=== PATIENT | male | born 1950 | race Caucasian/White ===

== ENCOUNTER 2016-07-02 08:51 | Outpatient (RCR) ==
--- NOTE | 2016-07-02 16:07 | RS.OPPTEV2 ---
Date of Note: 07/02/16 Visit #: 1 Date of Evaluation: 07/02/16 Payer Source: Insurance Date of Onset/Injury/Change in Status: 05/16/16 Treatment Diagnosis: Dizziness History of Condition/Mechanism of Injury:: Patient reports sudden onset of significant dizziness approximately a month ago while bent over to trim a horse' s thompson. States he was put on Antivert and Valium. Then a few weeks later on , he woke up ~3 am to go to the bathroom and he could not get out of bed and then once his helped him up he staggered into the bathroom. States at 5am that morning he was able to get out of bed, staggered to the bathroom and fell into the bathtub and hit his head. Functional Limitations: Bending, Ambulation Current Subjective/complaints:: Patient reports he has not had any other severe symptoms of dizziness since . States he still has dizziness with full neck extension or with turning his head quickly. States he occasionally stumbles, but not frequently. Also states that when he walks, he sometimes feels like his momentum is pulling him forward and his feet cannot keep up with his body. Reports he used to have problems with headaches, but for the last 6 months his has not had headaches. States he has had tinnitus for 30 years. Medical History Medical History: Hypertension Surgical History Comments:: CABG 2011, Smoking Status: Former smoker Diagnostic Testing/Imaging:: Carotid artery study showed no significant arterial stenosis. Head CT Hx Home Medications: Atorvastin, Amlodipine,Losartin, ASA, Allopurinol, diazepam , Meclizine Patient's Goals: His goal is to get relief from dizziness episodes. Functional Outcome Measure Tinetti: 28 Other: Dizziness FOM :34% impairment - G Codes & Severity Modifier G Codes & Modifier: Mobility current CJ. Mobility goal CH Source of G Code score: Dizziness FOM Observation - Observation Inspection: Patient exhibits no nystagmus at rest. Posture: Forward Head Gait - Gait Pattern General Gait Pattern Observation: No Deviations/Normal Gait Comments: Ambulates independently without an assistive device. No loss of balance or deviation from straight path with ambulation in the department. General Range of Motion: Cervical AROM is WFL's. Demonstrates slightly less motion with left rotation. Reports no onset of dizziness with rotation or flexion. Full cervical extension does cause dizziness that last for a few seconds after returning to a neutral posture. Full AROM of bilateral UE's. Muscle Strength: 5/5 throughout bilateral UE's. Special Tests: VA test -negative bilaterally Additional Comments: Additional Comments: Estela-Hallpike test elicits no nystagmus or dizziness to either side. Interventions - Exercise/Activities/Manual Therapy Exercises/Activities: NA Manual Therapy: NA - Charges Total Direct Minutes: 35 mins Total Treatment Time: 35 mins Procedures billed for this date of service:: EVAL [facility] Assessment Assessment: Patient presents to therapy with a diagnosis of dizziness. Patient only reported dizziness during the evaluation today with end range cervical extension, which resolved soon after returning to neutral. Special tests did not elicit symptoms dizziness or nystagmus. Patient at times sounds to have experienced BPPV in the past, but today I am unable to verify that it is BPPV. Recommend that he see a ENT physician for further assessment. I contacted Dr. Orosco's office regarding this. Will hold chart if he is assessed and sent back for therapy. Airport Attendant Goals Goal #1: Patient independent with Michelle Maneuver. Goal to be met by: 07/16/16 Plan - Treatment to be Provided Procedures: Therapeutic Activity, Canalith Repositioning, Vestibular Rehab, Patient Education Modalities: No Modalities - Treatment Plan Frequency: 1-2 x week Duration: 4 weeks ORDER # VISITS AND/OR THROUGH DATE: 07/16/16 - Treatment Code (1) Postural dizziness Comments: R42
== END 2016-07-16 ==
PROVIDERS: ATTEND Emergency Medicine
DX: R42 Dizziness and giddiness (principal)

== ENCOUNTER → 2016-07-31 | Outpatient (POV) | LOC: OUTPT 00:01 | PROVIDERS: ATTEND Otolaryngology | DX: R42 Dizziness and giddiness (principal) | CPT/HCPCS: 92557; 92567 ==

== ENCOUNTER 2017-05-13 10:00 | Outpatient (RCR) ==
--- NOTE | 2017-04-29 14:14 | RS.OPPTEV2 ---
Date of Note: 04/25/17 Visit #: 1 Date of Evaluation: 04/25/17 Payer Source: Insurance Date of Onset/Injury/Change in Status: 05/16/16 Treatment Diagnosis: Dizziness History of Condition/Mechanism of Injury:: Patient reports sudden onset of significant dizziness the end of 2015 while he bent over to trim a horse's thompson. States he was put on Antivert and Valium. Then a few weeks later on , he woke up ~3 am to go to the bathroom and he could not get out of bed and then once his helped him up he staggered into the bathroom. States at 5am that morning he was able to get out of bed, staggered to the bathroom and fell into the bathtub and hit his head. He has continued to have episodes of dizziness. Has been to ENT. Prior Level of Function.....Patient was independent with: ADL's, Self Care, Work /Vocation, Caregiving, Ambulation/Mobility, Community Integration/Access Functional Limitations: Bending, Ambulation Current Subjective/complaints:: Reports having times of dizziness with turning his head to the left. States he looked up some information about performing the Michelle maneuver and tried it himself at home. States it made him very dizzy , to the point he thought he would throw up. States he has not had headaches lately. He is hoping treatment will help decrease his dizziness. Reports that quick movements of his head and bending over causes increased dizziness. Reports no recent falls. States he has Meclizine to take 3 times a day. He did not take it today, per our request for the evaluation. Medical History Medical History: Hypertension Surgical History Comments:: CABG 2011, Smoking Status: Former smoker Hx Home Medications: Atorvastin, Amlodipine,Losartin, ASA, Allopurinol, diazepam , Meclizine Patient's Goals: His goal is to get relief of dizziness. Functional Outcome Measure Other: The Dizziness Handicap Inventory : score of 34 - G Codes & Severity Modifier G Codes & Modifier: NA Source of G Code score: NA Observation - Observation Posture: Forward Head, Rounded Shoulders Gait - Gait Pattern Gait Comments: Ambulates independently without an assistive device and no loss of balance or obvious balance impairment. General Range of Motion: Cervical AROM is WFL's in all directions with currently no reports of dizziness. Additional Comments: Additional Comments: Modified VA Test: negative bialterally. Sharp-Yamilex: negative. Spontaneous Nystagmus: absent. Patient demonstrates smooth pursuit with vertical and horizontal eye movements. Eye convergence WNL's. BPPV Special Tests: Head Thrust: negative, Head-Shaking Nystagmus: left beating nystagmus. Estela-Hallpike: positive to the left. Negative to the right. Roll test: Negative. Interventions - Exercise/Activities/Manual Therapy Exercises/Activities: Explained and performed Left Michelle maneuver. Patient given handout with instructions and advised to avoid bending over. Instructed to perform exercises 2-3 times a day. Manual Therapy: NA HOME EXERCISE PROGRAM: Left Michelle maneuver - Other Services Other Treatments/Services: Canalith Repositioning - Charges Total Direct Minutes: 40 mins Total Treatment Time: 40 mins Procedures billed for this date of service:: EVAL Assessment Assessment: Patient presents to the department with diagnosis of dizziness. Physician orders for Michelle maneuver. Patient demonstrates minimal impairment from dizziness. Demonstrates likely left sided BPPV. He will benefit from Michelle maneuver and continued visits to monitor progress and modify program/ exercises as needed. Patient Education: Education of diagnosis, Activity Modification Rehab Potential: Good Short Term Goals Goal #1: Pt independent and compliant with Michelle maneuver. Goal to be met by: 05/06/17 Custodial Goals Goal #1: Pt independent with HEP. Goal to be met by: 05/29/17 Goal #2: Pt to report no episodes of dizziness. Goal to be met by: 05/29/17 Goal #3: Dizziness Handicap Inventory score <20. Goal to be met by: 05/29/17 Plan - Treatment to be Provided Procedures: Therapeutic Activity, Canalith Repositioning, Vestibular Rehab, Patient Education Modalities: No Modalities - Treatment Plan Frequency: 1-2 x week Duration: 4 weeks ORDER # VISITS AND/OR THROUGH DATE: 05/29/17 - Treatment Code (1) Benign paroxysmal vertigo of left ear Code(s): H81.12 - BENIGN PAROXYSMAL VERTIGO, LEFT EAR Comments: H81.12 (2) Postural dizziness Code(s): R42 - DIZZINESS AND GIDDINESS Comments: R42
--- NOTE | 2017-04-29 14:46 | RS.OPPTDN ---
Subjective Date of Note: 04/29/17 Visit #: 2 Date of Evaluation: 04/25/17 Payer Source: Insurance Treatment Diagnosis: Dizziness Current Subjective/complaints:: States he has been performing the Michelle maneuver to his left 3 times a day. States he maybe a little better. States a few times he performed the Michelle maneuver, it made him a little dizziness. He has not taken Meclizine since the day before the evaluation last week. States he has not noticed feeling worse or better without the medication. Prior to evalution, his was taking meclizine once a day. Interventions - Exercise/Activities/Manual Therapy Exercises/Activities: Discussed and reviewed Michelle maneuver. Patient states he is counting to 30 at home and feels confident that he is performing it with plenty of cervical extension. Manual Therapy: NA HOME EXERCISE PROGRAM: Left Michelle maneuver - Objective Findings Observations,measurements,etc.: Re-assessed patient: [place]-Hallpike:negative bilaterally. Roll Test: negative. Motion sensitivity testing: sit to supine elicits dizziness. Patient given habituation exercises for long sit to supine and left head turns. - Charges Total Direct Minutes: 21 mins Total Treatment Time: 21 mins Procedures billed for this date of service:: EX Assessment: Patient is unsure at this time if the left Michelle maneuver is making a difference. He is very receptive to also adding the Habituation exercises. Demonstrates potential to gain relief of dizziness with treatment. Patient demonstrates compliance with HEP?: Yes Short Term Goals Goal #1: Pt independent and compliant with Michelle maneuver. Goal to be met by: 05/06/17 Progress towards Goal:: Met Feather Renovator Goals Goal #1: Pt independent with HEP. Goal to be met by: 05/29/17 Goal #2: Pt to report no episodes of dizziness. Goal to be met by: 05/29/17 Goal #3: Dizziness Handicap Inventory score <20. Goal to be met by: 05/29/17 Plan PLAN OF CARE EXPIRES ON:: 05/29/17 ORDER # VISITS AND/OR THROUGH DATE: 05/29/17 PLAN: Will reassess in a week to see if he is making progress or if activities need to be modified.
--- NOTE | 2017-05-06 13:07 | RS.OPPTDN ---
Subjective Date of Note: 05/06/17 Visit #: 3 Date of Evaluation: 04/25/17 Payer Source: Insurance Treatment Diagnosis: Dizziness Current Subjective/complaints:: Patient states he has been performing the Michelle maneuver and habituation exercises as instructed. States the initial position of lying supine with neck extended and turned to the left brings on dizziness after about 15 seconds of hold time. States this has been happening consistently. States he holds the position until it passes. Reports headaches above his eyes and base of his head. - Heat/Cryotherapy Treatment: Hot Pack (X 10 mins prior to traction) - Traction Treatment Method: Mechanical, Intermittent, Cervical Patient Position: Supine Amount of Force Applied: 23-24 lbs. Hold Time: 30 sec Rest Time: 5 sec Duration of treatment: 12 mins Interventions - Exercise/Activities/Manual Therapy Exercises/Activities: Discussed and reviewed Michelle maneuver. Advised to continue with this and added cervical rotation and lateral flexion stretching to gain increased mobility. Total minutes of Exercise: 14 mins Manual Therapy: NA HOME EXERCISE PROGRAM: Left Michelle maneuver - Objective Findings Observations,measurements,etc.: Cervical rotation to the left is approximately 75% of normal and right rotation is 90 to 100% of normal range. Lateral flexion bilaterally is 50% of normal range. VA test and modified VA test negative bilaterally. - Charges Total Direct Minutes: 26 Total Treatment Time: 36 Procedures billed for this date of service:: HP, EX, mechanical traction Assessment: Patient is compliant and independent with Michelle maneuver. He continues to have onset of dizziness consistently with initial position of Michelle , when he is supine with neck extended and in left rotation. He demonstrates limited mobility of the cervical spine to the left and may benefit from treatment to the neck of stretching, traction, and strengthening to reduce symptoms that may be cervicogenic. Patient Education: Education of diagnosis, Home Exercise Program, Education of Plan of Care Patient demonstrates compliance with HEP?: Yes Short Term Goals Goal #1: Pt independent and compliant with Michelle maneuver. Goal to be met by: 05/06/17 Progress towards Goal:: Met [facility] Goals Goal #1: Pt independent with HEP. Goal to be met by: 05/29/17 Goal #2: Pt to report no episodes of dizziness. Goal to be met by: 05/29/17 Goal #3: Dizziness Handicap Inventory score <20. Goal to be met by: 05/29/17 Plan PLAN OF CARE EXPIRES ON:: 05/29/17 ORDER # VISITS AND/OR THROUGH DATE: 05/29/17 PLAN: Continue with cervical mechanical traction and exercises, along with Michelle maneuver, to address symptoms.
--- NOTE | 2017-05-09 11:22 | RS.OPPTDN ---
Subjective Date of Note: 05/09/17 Visit #: 4 Date of Evaluation: 04/25/17 Payer Source: Insurance Treatment Diagnosis: Dizziness Current Subjective/complaints:: Patient reports he has been performing his neck stretches. States he had a small amount of dizziness with left lateral flexion stretching. Reports no problems following traction treatment at last session. - Heat/Cryotherapy Treatment: Hot Pack (X 15 mins to cervical spine prior to traction) - Traction Treatment Method: Mechanical, Intermittent, Cervical Patient Position: Supine Amount of Force Applied: 26-27 lbs. Hold Time: 30 sec Rest Time: 5 sec Duration of treatment: 16 mins Interventions - Exercise/Activities/Manual Therapy Exercises/Activities: Reports a few episodes of dizziness with Michelle maneuver, but seems to less intense. Patient assisted with stretching into lateral flexion. Total minutes of Exercise: X 9 mins Manual Therapy: NA HOME EXERCISE PROGRAM: Left Michelle maneuver, cervical rotation and lateral flexion stretching. - Objective Findings Observations,measurements,etc.: Cervical rotation to the left is better, however continues to be less than to the right. - Charges Total Direct Minutes: 9 mins Total Treatment Time: 40 mins Procedures billed for this date of service:: HP, traction, EX Assessment: Patient tolerates traction well. Is obviously performing cervical stretching as instructed as rotation to the left has improved. Demonstrates continued hypomobility of the cervical spine and will benefit from continued traction and stretching to improve neck motion and possibly decrease dizziness that may be cervicogenic. Patient Education: Education of diagnosis, Body/Joint mechanics, Home Exercise Program, Activity Modification, Education of Plan of Care Patient demonstrates compliance with HEP?: Yes Short Term Goals Goal #1: Pt independent and compliant with Michelle maneuver. Goal to be met by: 05/06/17 Progress towards Goal:: Met Goal #2: Cervical rotation and lateral flexion WNL's. Goal to be met by: 05/19/17 Land Surveying Manager Goals Goal #1: Pt independent with HEP. Goal to be met by: 05/29/17 Goal #2: Pt to report no episodes of dizziness. Goal to be met by: 05/29/17 Goal #3: Dizziness Handicap Inventory score <20. Goal to be met by: 05/29/17 Plan PLAN OF CARE EXPIRES ON:: 05/29/17 ORDER # VISITS AND/OR THROUGH DATE: 05/29/17 PLAN: Continue to progress traction and neck stretching and habituation exercises as indicated to further reduce symptoms of dizziness.
--- NOTE | 2017-05-13 11:18 | RS.OPPTDN ---
Subjective Date of Note: 05/13/17 Visit #: 5 Date of Evaluation: 04/25/17 Payer Source: Insurance Treatment Diagnosis: Dizziness Current Subjective/complaints:: Patient states he had a bad dizzy episode over the weekend while hanging [place] lights. States he just climbed up a ladder and reached his arm out, and got really dizzy and nauseous. States he had not been looking up or down when it came on. States it was one of the worst spells he had had. Also states he continues to perform the Michelle maneuver, with continued dizziness if he keeps his eyes open. - Heat/Cryotherapy Treatment: Hot Pack (x 15 mins prior to cervical traction) - Traction Treatment Method: Mechanical, Intermittent, Cervical Patient Position: Supine Amount of Force Applied: 29-30 lbs. Hold Time: 30 sec Rest Time: 5 sec Duration of treatment: 20 mins Traction Treatment Comment: no complaints Interventions - Exercise/Activities/Manual Therapy Exercises/Activities: Assisted with stretching into lateral flexion. Instructed in cervical retraction to stretch tight muscles at the base of the skull. Instructed to discontinue performing the Michelle maneuver as no significant improvement in symptoms have occurred since initial evaluation. Total minutes of Exercise: X 9 mins Manual Therapy: NA HOME EXERCISE PROGRAM: (Left Michelle maneuver-discontinued 05/13/17), cervical rotation, lateral flexion stretching, cervical retraction. - Objective Findings Observations,measurements,etc.: Cervical rotation is nearly equal, comparing left to right. Lateral flexion is more limited to the left. - Charges Total Direct Minutes: 9 mins Total Treatment Time: 44 mins Procedures billed for this date of service:: HP, Traction Assessment: Patient with continued sporadic episodes of dizziness. Michelle maneuver does not appear to be reducing or changing his symptoms. Cervical rotation to his left has improved. Discussed the increase in pull on the traction today and trying one more visit with cervical traction at a therapeutic range to determine if treatment to the neck may reduce his symptoms. Patient Education: Education of diagnosis, Home Exercise Program, Education of Plan of Care Patient demonstrates compliance with HEP?: Yes Short Term Goals Goal #1: Pt independent and compliant with Michelle maneuver. Goal to be met by: 05/06/17 Progress towards Goal:: Met Goal #2: Cervical rotation and lateral flexion WNL's. Goal to be met by: 05/19/17 Progress towards Goal:: Progressing Riding Instructor Goals Goal #1: Pt independent with HEP. Goal to be met by: 05/29/17 Progress towards goal: Progressing Goal #2: Pt to report no episodes of dizziness. Goal to be met by: 05/29/17 Goal #3: Dizziness Handicap Inventory score <20. Goal to be met by: 05/29/17 Plan PLAN OF CARE EXPIRES ON:: 05/29/17 ORDER # VISITS AND/OR THROUGH DATE: 05/29/17 PLAN: Will see for one more therapy session, to determine his response to the increased cervical traction poundage today and have another opportunity to provide traction to see if symptoms are at all cervicogenic.
== END 2017-05-15 ==
PROVIDERS: ATTEND Internal Medicine
DX: R42 Dizziness and giddiness (principal)

== ENCOUNTER 2017-12-29 08:50 | Outpatient (CLI) ==
--- NOTE | 2017-12-29 12:20 | MRI ---
EXAM: MRI brain without and with IV contrast. DATE: 12/29/2017. HISTORY: Dizziness x 6 years, with recent worsening of symptoms. TECHNIQUE: Sagittal T1W postcontrast, axial T2W, axial FLAIR, axial T1W pre and postcontrast, axial DWI, coronal T1W postcontrast, and coronal T2W GRE sequences of the brain were obtained using 1.2 Adina la magnet. CONTRAST: Omniscan - 20 ml IV. COMPARISON: CT head 16 May 2016. FINDINGS: The ventricles, cisterns, and sulci are commensurately enlarged due to involutional change . No midline shift, mass effect or abnormal extra-axial fluid collection is apparent. No acute infa rct, hemorrhage or enhancing neoplasm is identified. No abnormal contrast enhancement is identified in the brain, meninges or dura. Moderate/large confluent rim of T2W/FLAIR hyperintensity is observed in the white matter abutting each lateral ventricle. Multiple other 210 mm, T2W/FLAIR bright, non-e nhancing foci are scattered within the nash radiata, centrum semiovale, and subcortical white matte r bilaterally. A 2 mm FLAIR hyperintense, non-enhancing focus is seen in the left cerebral peduncle. Prominent Virchow-Chao spaces are demonstrated within each basal ganglia. The quinteros - white matter differentiation is normal. Small areas of T2W GRE black signal within each basal ganglia appear melvi ign. T2W GRE black signal within the region of the pineal gland correlates with benign calcification on CT scan. No migration or diverticulation abnormality is identified. The amygdala, hippocampus, and parahippocampal gyri are similar bilaterally. The 7th/8th cranial nerve complexes, cerebellopont ine angles, brainstem, and visible cervical spinal cord are normal. There is no cerebellar tonsillar ectopia. The pituitary gland is normal in size and signal. Corpus callosum is normal in size and c onfiguration. Left vertebral artery is dominant. T2W/T1W bright signal within the right vertebral a rtery could indicate slow flowing blood. Contrast enhancement within this vessel reduces the likelih ood of a true vessel occlusion. Flow voids are present in the remaining major intracranial arteries and in the dural venous sinuses. No aneurysm, AVM or dural venous sinus thrombosis is apparent. No orbit abnormality is identified. The mastoid air cells are unremarkable. There is mild mucosal thic kening within multiple ethmoid air cells and both maxillary sinuses. Retention cyst with inspissated mucus is suspected at the anterior inferior right maxillary sinus.. No neck mass or lymphadenopathy is detected. No calvarial neoplasm or acute fracture is evident. IMPRESSIONS: 1. No acute infarct, hemorrhage, enhancing neoplasm or hydrocephalus. 2. Moderate/marked cerebral and minor brainstem small vessel disease. 3. Minor, benign basal ganglia mineral deposition. 4. Mild cerebral and minor cerebellar atrophy. 5. Right vertebral artery signal abnormality - DDX: Flow artifact or slow flowing blood is likely. Vessel occlusion is unlikely since there is contrast enhancement within the vertebral artery. Consider MRA or CTA for fur ther evaluation.
== END 2017-12-29 08:51 | disposition home or self-care (01) ==
LOC: RAD 08:50
PROVIDERS: ATTEND Internal Medicine
DX: R42 Dizziness and giddiness (principal)

== ENCOUNTER 2018-12-04 06:55 | Outpatient (CLI) | END 2018-12-04 07:11 | disposition short-term general hospital (02) | LOC: AMBL 06:55 | PROVIDERS: ATTEND Internal Medicine | DX: R42 Dizziness and giddiness (principal); R11.2 Nausea with vomiting, unspecified; R53.1 Weakness ==